=== PATIENT | male | born 1995 ===

== ENCOUNTER 2016-10-28 00:54 | Emergency (ER) | payer OTHER ==
[2016-10-28] MEDS ORDERED: NS 1,000 ML IV ONE (01:03)
[2016-10-28 01:04] VITALS: TEMP 98.6
[2016-10-28] MEDS ORDERED: LORazepam 2 MG/ML INJ IVP ONE (01:05)
[2016-10-28 03:27] VITALS: RESP 16
--- NOTE | 2016-10-28 06:24 | EDPHY ---
H & P Stated Complaint: 1st time taking edibles, c/o anxiety, "feellike my soul is being sucked out Time Seen by Provider: 10/28/16 00:56 HPI/ROS: HPI The patient presents with anxiety, tachycardia, hallucinations in the setting of edible marijuana use at approximately 11:00 p.m. tonight. The patient is not exactly sure the quantity of marijuana that he ingested as it was in some sort of edible. About an hour afterwards he began to feel anxious, outside of his body, uncomfortable. 911 was called and the patient presents an ambulance. He received fluids in route. He does not have any prior history of marijuana use. REVIEW OF SYSTEMS Constitutional: No fever, no chills. Eyes: No discharge. ENT: No sore throat. Cardiovascular: No chest pain, no palpitations. Respiratory: No cough, no shortness of breath. Gastrointestinal: No abdominal pain, no vomiting. Genitourinary: No hematuria. Musculoskeletal: No back pain. Skin: No rashes. Neurological: No headache. PMHx: Healthy Soc Hx: Student, premed FHx: PHYSICAL General Appearance: Alert, no distress Eyes: Pupils equal and round, conjunctivae are injected ENT, Mouth: Mucous membranes dry Respiratory: There are no retractions, lungs are clear to auscultation Cardiovascular: Tachycardic, regular rhythm Gastrointestinal: Abdomen is soft and non-tender, no masses, bowel sounds normal Neurological: A&O, moves all extremities Skin: Warm and dry, no rashes Musculoskeletal: Neck is supple non tender Extremities: symmetrical, full range of motion Psychiatric: Patient is oriented X 3, anxious appearing Source: Patient, EMS Exam Limitations: Intoxication - Personal History Current Tetanus/Diphtheria Vaccine: Unsure Current Tetanus Diphtheria and Acellular Pertussis (TDAP): Unsure - Medical/Surgical History Hx Asthma: No Hx Chronic Respiratory Disease: No Hx Diabetes: No Hx Cardiac Disease: No Hx Renal Disease: No Hx Cirrhosis: No Hx Alcoholism: No Hx HIV/AIDS: No Hx Splenectomy or Spleen Trauma: No Other PMH: denies - Social History Smoking Status: Never smoked Constitutional: Initial Vital Signs Temperature (C) 37 C 10/28/16 01:02 Heart Rate 138 H 10/28/16 01:02 Respiratory Rate 20 10/28/16 01:02 Blood Pressure 131/63 H 10/28/16 01:02 O2 Sat (%) 97 10/28/16 01:02 O2 Delivery Mode Room Air Allergies/Adverse Reactions: No Known Allergies Allergy (Unverified 10/28/16 01:04) Home Medications: Medication Instructions Recorded NK [No Known Home Meds] 10/28/16 Medical Decision Making Differential Diagnosis: This is a healthy 21-year-old man who admits to marijuana use just prior to arrival, possibly large quantity, now presents with anxiety, tachycardia, hallucinations. Differential diagnosis includes marijuana use, polysubstance abuse, psychiatric disease. In the emergency room, the patient was given IV fluids. He was able to tolerate fluids by mouth. He was given a dose of Ativan for her symptoms which allowed him to sleep for several hours. Upon awakening he was more alert and lucid. I feel he likely suffered from under toward affects of marijuana. He will be discharged from the emergency room in good condition. - Data Points Medications Given: Discontinued Medications Sodium Chloride (Ns) 1,000 mls @ 0 mls/hr IV ONCE ONE PRN Reason: Wide Open Stop: 10/28/16 01:04 Last Admin: 10/28/16 01:03 Dose: 1,000 mls Lorazepam (Ativan Injection) 1 mg IVP EDNOW ONE Stop: 10/28/16 01:06 Last Admin: 10/28/16 01:10 Dose: 1 mg Departure - Departure Disposition: Home, Routine, Self-Care Clinical Impression: Marijuana intoxication, Tachycardia Condition: Good Instructions: Cannabis Abuse (ED) Referrals: [facility] [Outside] - As per Instructions
[2016-10-28 07:04] VITALS: BP 98/70; PULSE 72; O2SAT 96
== END 2016-10-28 06:50 | disposition home or self-care (01) ==
DX: R00.0 Tachycardia, unspecified (principal); F12.129 Cannabis abuse with intoxication, unspecified
CPT/HCPCS: 96374; J2060